=== PATIENT | female | born 1975 | race Hispanic/Latino ===

== ENCOUNTER → 2024-06-11 14:19 | Outpatient (CLI) | payer SELFPAY ==
[2024-06-11 19:37] LABS: Add Manual Diff / Slide Review NO; Basophils Absolute Auto 100 /uL (0-100); Basophils Percent Auto 0.7 % (0-2); Eosinophils Absolute Auto 300 /uL (0-450); Eosinophils Percent Auto 3.3 % (2-4); Hematocrit 32.9 % (36-46); Hemoglobin 10.4 g/dL (12.0-16.0); Lymphocytes Absolute Auto 2800 /uL (1100-4500); Lymphocytes Percent Auto 31.9 % (25-40); Mean Corpuscular HGB Conc 31.7 % (30-36); Mean Corpuscular Hemoglobin 19.1 PG (26-34); Mean Corpuscular Volume 60.3 fL (80-100); Monocytes Absolute Auto 400 /uL (0-900); Neutrophils Absolute Auto 5200 /uL (1500-7000); Neutrophils Percent Auto 59.1 % (50-75); Platelet Count 273 X10^3/uL (150-400); Red Blood Cell Count 5.45 X10^6/uL (4.0-5.2); Red Cell Distribution Width 16.2 % (11.6-14.8); White Blood Cell Count 8.8 X10^3/uL (4.5-11.0)
[2024-06-11 19:40] LABS: Alanine Aminotransferase 19 IU/L (<35); Albumin 4.1 g/dL (3.5-5.0); Albumin Globulin Ratio 1.8 (1.0-2.8); Alkaline Phosphatase 110 U/L (38-126); Aspartate Aminotransferase 24 IU/L (14-36); BUN Creatinine Ratio 45.7 (6-22); Bilirubin Total 0.7 mg/dL (0.2-1.3); Blood Urea Nitrogen 16 mg/dL (7-17); C-Reactive Protein Quant < 0.5 mg/dL (<1.0); Calcium 9.7 mg/dL (8.4-10.2); Carbon Dioxide 24 mmol/L (22-32); Chloride 96 mmol/L (98-107); Estimated Glomerular Filt Rate > 60 mL/min (>60); Globulin 2.3 g/dL (1.7-4.1); Glucose 388 mg/dL (70-100); HEMOLYSIS < 15 (0-50); Potassium 3.8 mmol/L (3.4-5.1); Sodium 131 mmol/L (137-145); Total Protein 6.4 g/dL (6.3-8.2)
[2024-06-11 19:43] LABS: Hemoglobin A1C% w Est Avg Glu 12.7 % (4.0-6.0)
[2024-06-11 19:54] LABS: Erythrocyte Sedimentation Rate 5 MM/HR (0-20); Microcytosis 1+
== END ==
PROVIDERS: PCP Family Medicine; Visit Provider Family Medicine
DX: E11.622 Type 2 diabetes mellitus with other skin ulcer (principal); L97.509 Non-pressure chronic ulcer of other part of unspecified foot with unspecified severity; L98.499 Non-pressure chronic ulcer of skin of other sites with unspecified severity
CPT/HCPCS: 80053; 83036; 85025; 85651; 86140; 87070; 87075; 87077; 87186; 87205

== ENCOUNTER → 2024-06-18 10:55 | Outpatient (CLI) | payer SELFPAY ==
--- NOTE | 2024-06-18 | OV.WND_ITS ---
PROGRESS NOTE DETAILS PATIENT NAME: CHARLEY COLES PATIENT NUMBER: [id number] CLINICIAN: POLLY MARQUEZ PATIENT DATE OF : 1975 PHYSICIAN / PROPAGATION WORKER: MONI FLOYD PATIENT SUBJECTIVE CHIEF COMPLAINT THIS INFORMATION WAS OBTAINED FROM THE PATIENT. WOUNDS ON BIG TOES ALLERGIES NO KNOWN DRUG ALLERGIES HPI THIS INFORMATION WAS OBTAINED FROM THE PATIENT. THE FOLLOWING HPI ELEMENTS WERE DOCUMENTED FOR THE PATIENT'S WOUND: LOCATION: [facility] DURATION: 03/20/24 CONTEXT: DFU THE PATIENT IS A 49-YEAR-OLD FEMALE WITH DIABETES WHO WAS REFERRED BY DR. CITLALI WEIR FOR EVALUATION AND TREATMENT OF ULCERS ON BOTH GREAT TOES THAT DEVELOPED AFTER WEARING SOME TIGHT SHOES. THE PATIENT REPORTS THAT THE ULCERS ARE PAINFUL HOWEVER SHE HAS NOT HAD ANY DRAINAGE. SHE DID RECENTLY HAVE SIGNS OF INFECTION AND WAS TREATED WITH A COURSE OF ORAL ANTIBIOTICS. THE PATIENT HAS NOT HAD ANY RECENT FEVER OR CHILLS. SHE REPORTS A GOOD APPETITE AND DENIES HAVING ANY OTHER RECENT CHANGES IN HER OVERALL HEALTH. SHE HAS NEVER HAD ANY DIABETIC ULCERS IN THE PAST. THE PATIENT DOES NOT SMOKE CIGARETTES. ABIS DONE IN CLINIC TODAY INDICATE BILATERAL PAD. THE PATIENT DOES NOT SPEAK VIETNAMESE AND INFORMATION WAS OBTAINED WITH THE USE OF A SEARCH ENGINE OPTIMIZATION STRATEGIST. LABS 06/12/24: X-RAYS OF BOTH FEET SHOWED MILD DIFFUSE SOFT TISSUE SWELLING, NO EVIDENCE FOR OSTEOMYELITIS. 06/11/24: HEMOGLOBIN A1C 12.7, WBC 8.8, HEMOGLOBIN 10.4, HCT 32.9, SODIUM 131, CREATININE 0.35, GFR GREATER THAN 60, LFTS NORMAL 06/11/24: CULTURES GREW STAPHYLOCOCCUS EPIDERMIDIS AND CITROBACTER FREUNDII FAMILY HISTORY UNABLE TO OBTAIN INFORMATION. SOCIAL HISTORY THIS INFORMATION WAS OBTAINED FROM THE PATIENT. NEVER SMOKER LIVES IN: PRIVATE HOME OCCUPATION: UNEMPLOYED [employer] CHARLEY COLES [id number] 1975 MEDICAL HISTORY THIS INFORMATION WAS OBTAINED FROM THE CHART, PATIENT. PATIENT HAS A MEDICAL HISTORY OF: DIABETES WITH SKIN ULCER DIABETIC ULCER OF TOE ASSOCIATED WITH DIABETES MELLITUS DUE TO UNDERLYING CONDITION DM2 MIXED HYPERLIPIDEMIA ADDITIONAL INFORMATION DOES PATIENT HAVE A HISTORY OF CANCER? YES? COMPLETE ALL QUESTIONS.: NO SURGICAL HISTORY THIS INFORMATION WAS OBTAINED FROM THE PATIENT. PATIENT HAS A SURGICAL HISTORY OF: HYSTERECTOMY - REVIEW OF SYSTEMS (ROS) THIS INFORMATION WAS OBTAINED FROM THE PATIENT. COMPLAINTS AND SYMPTOMS PATIENT COM PLAINS OF: CO-MORBID CONDITIONS: DIABETES PRIOR WOUND HISTORY: ERYTHEMA, PAIN PATIENT DENIES COM PLAINTS OR SY M PTOM S RELATED TO: CARDIOVASCULAR (CENTRAL): CHEST PAIN, DYSPNEA ON EXERTION CONSTITUTIONAL SYMPTOMS (GENERAL HEALTH): CHILLS, FEVER, LOSS OF APPETITE PRIOR WOUND HISTORY: BLEEDING, DRAINAGE, MALODOR RESPIRATORY: COUGH, SHORTNESS OF BREATH GENERAL NOTES UP TO DATE PER PT OBJECTIVE VITALS HEIGHT/LENGTH: 63 IN (160.02 CM), WEIGHT: 161 LBS (73.18 KGS), BMI: 28.5. PHYSICAL EXAM CONSTITUTIONAL: VITAL SIGNS REVIEWED AND NOTED. WELL DEVELOPED, WELL NOURISHED, AND IN NO ACUTE DISTRESS. ALERT AND ORIENTED X3. RESPIRATORY: EVEN RESPIRATIONS WITHOUT USE OF ACCESSORY MUSCLES. NO INTERCOASTAL RETRACTIONS NOTED. EVEN AND NON LABORED RESPIRATION. INTEGUMENTARY (HAIR, SKIN): NO ERYTHEMA. NO SWELLING OR TENDERNESS. SEE WOUND ASSESSMENT. SKIN WARM AND DRY. NO RASHES. NEUROLOGICAL: SENSATION: SYMMETRIC FUNCTION BY INFORMAL OBSERVATION. PSYCHIATRIC: ORIENTATION TO TIME, PLACE AND PERSON: NORMAL AFFECT WITH NORMAL THOUGHT PATTERN. CHARLEY COLES [id number] 1975 ADDITIONAL INFORMATION THE PATIENT'S POTENTIAL TO HEAL IS: FAIR. LOWER EXTREMITY ASSESSMENT VASCULAR ASSESSMENT LEFT EXTREMITY PULSES: DORSALIS PEDIS: DOPPLER RIGHT EXTREMITY PULSES: DORSALIS PEDIS: DOPPLER LEFT EXTREMITY COLORS, HAIR GROWTH, AND CONDITIONS: EXTREMITY COLOR: WNL HAIR GROWTH ON EXTREMITY: NO TEMPERATURE OF EXTREMITY: WARM CAPILARY REFILL: > 3 SECONDS ERYTHEMA: NO RIGHT EXTREMITY COLORS, HAIR GROWTH, AND CONDITIONS: EXTREMITY COLOR: WNL HAIR GROWTH ON EXTREMITY: NO TEMPERATURE OF EXTREMITY: WARM CAPILARY REFILL: > 3 SECONDS ERYTHEMA: NO WOUND ASSESSMENT(S) WOUND #1 LEFT HALLUX IS A CHRONIC VERA GRADE 4 DIABETIC ULCER ACQUIRED ON 03/20/2024 AND HAS RECEIVED A STATUS OF NOT HEALED. INITIAL WOUND ENCOUNTER MEASUREMENTS ARE 1.8CM LENGTH X 2.4CM WIDTH X 0.1 CM DEPTH, WITH AN AREA OF 4.32 SQ CM AND A VOLUME OF 0.432 CUBIC CM. ADIPOSE IS EXPOSED. NO TUNNELING HAS BEEN NOTED. NO SINUS TRACT HAS BEEN NOTED. NO UNDERMINING HAS BEEN NOTED. THERE WAS NO DRAINAGE NOTED. THE PATIENT REPORTS A WOUND PAIN OF LEVEL 0/10. THE WOUND MARGIN IS UNABLE TO ASSESS WOUND BED HAS NO, GRANULATION, NO SLOUGH, YES ESCHAR, NO EPITHELIALIZATION. THE PERIWOUND SKIN TEXTURE IS NORMAL. THE PERIWOUND SKIN MOISTURE IS NORMAL. THE PERIWOUND SKIN COLOR IS NORMAL. THE TEMPERATURE OF THE PERIWOUND SKIN IS WNL. LOCAL PULSE IS DOPPLER. ADDITIONAL INFORMATION OTHER DEVITALIZED TISSUE PRESENT: BIOFILM WOUND #2 RIGHT HALLUX IS A CHRONIC VERA GRADE 4 DIABETIC ULCER ACQUIRED ON 03/20/2024 AND HAS RECEIVED A STATUS OF NOT HEALED. INITIAL WOUND ENCOUNTER MEASUREMENTS ARE 2CM LENGTH X 2.8CM WIDTH X 0.1 CM DEPTH, WITH AN AREA OF 5.6 SQ CM AND A VOLUME OF 0.56 CUBIC CM. ADIPOSE IS EXPOSED. NO TUNNELING HAS BEEN NOTED. NO SINUS TRACT HAS BEEN NOTED. NO UNDERMINING HAS BEEN NOTED. THERE WAS NO DRAINAGE NOTED. THE PATIENT REPORTS A WOUND PAIN OF LEVEL 9/10. THE WOUND MARGIN IS UNABLE TO ASSESS WOUND BED HAS NO, GRANULATION, NO SLOUGH, YES ESCHAR, NO EPITHELIALIZATION. THE PERIWOUND SKIN TEXTURE IS NORMAL. THE PERIWOUND SKIN MOISTURE IS NORMAL. THE PERIWOUND SKIN COLOR IS NORMAL. THE TEMPERATURE OF THE PERIWOUND SKIN IS WNL. LOCAL PULSE IS DOPPLER. ADDITIONAL INFORMATION OTHER DEVITALIZED TISSUE PRESENT: BIOFILM ASSESSMENT ACTIVE PROBLEMS ICD-10 (ENCOUNTER DIAGNOSIS) E11.621 - TYPE 2 DIABETES MELLITUS WITH FOOT ULCER (ENCOUNTER DIAGNOSIS) L97.522 - NON-PRESSURE CHRONIC ULCER OF OTHER PART OF LEFT FOOT WITH FAT LAYER EXPOSED CHARLEY COLES [id number] 1975 (ENCOUNTER DIAGNOSIS) L97.512 - NON-PRESSURE CHRONIC ULCER OF OTHER PART OF RIGHT FOOT WITH FAT LAYER EXPOSED GENERAL NOTES DRY NECROTIC ESCHARS ON BILATERAL GREAT TOES, NO INFECTION THE FOLLOWING FACTORS HAVE BEEN IDENTIFIED THAT MAY AFFECT WOUND HEALING: DEVITALIZED TISSUE BIOFILM DIABETES PRESSURE MOISTURE IMBALANCE GOALS: REMOVED DEVITALIZED TISSUE REMOVE AND PREVENT BIOFILM REDUCE PRESSURE PREVENT INFECTION WOUND CLOSURE PREVENT RECURRENCE PLAN: PAINT BOTH ESCHARS WITH BETADINE DAILY AND ALLOW TO AIR DRY, USE POSTOP SURGICAL SHOES FOR PRESSURE OFFLOADING, ORDER ARTERIAL DOPPLER, FOLLOW UP IN 2 WEEKS FOR A RECHECK. PLAN WOUND ORDERS: WOUND #1 LEFT HALLUX TOPICAL TREATMENTS OTHER ORDER: - PAINT WITH BETADINE DAILY DRESSING ORDERS APPLY DRESSING(S) AND SECURE WITH: - LOOSE GAUZE AND TAPE DRESSING CHANGE FREQUENCY CHANGE DRESSING DAILY. WOUND #2 RIGHT HALLUX TOPICAL TREATMENTS OTHER ORDER: - PAINT WITH BETADINE DAILY DRESSING ORDERS APPLY DRESSING(S) AND SECURE WITH: - LOOSE GAUZE AND TAPE DRESSING CHANGE FREQUENCY CHANGE DRESSING DAILY. ADDITIONAL ORDERS: HAND HYGIENE HAND HYGIENE - WASH HANDS BEFORE AND AFTER WOUND CARE. CALL THE WOUND CENTER AT [phone] IF YOU HAVE SIGNS OR SYMPTOMS OF INFECTION, FEVER CHILLS OR SHAKES, INCREASED DRAINAGE, INCREASED ODOR OR UNUSUAL REDNESS. AFTER WOUND CENTER HOURS PLEASE NOTIFY YOUR PCP OR GO TO THE EMERGENCY ROOM. OFF-LOADING / PRESSURE RELIEF USE/WEAR WHEN WALKING: - SANDALS. DO NOT WEAR ANY TIGHT FITTING SHOES DIETARY TAKE VITAMIN C 1000MG BY MOUTH DAILY. TAKE ZINC 25MG BY MOUTH DAILY. INCREASE THE PROTEIN IN YOUR DIET. FOLLOW-UP APPOINTMENTS RETURN APPOINTMENT 1 WEEK SCRIBING ATTESTATION I ATTEST, THE NURSE, THAT I SCRIBED THESE ORDERS FOR THE WOUND CARE PROVIDER. PROVIDER REVIEW AND ATTESTATION: CHARLEY COLES [id number] 1975 REVIEWED AND EVALUATED LABS. REVIEWED HOSPITAL RECORDS. DISCUSSED THE PLAN OF CARE @ BEDSIDE WITH - THE PATIENT AND SIGN I AGREE AND ATTEST TO THE ABOVE INFORMATION PROVIDED FROM OTHER LICENSED PROFESSIONALS. ANCILLARY SERVICES: CARDIOVASCULAR: ARTERIAL ULTRASOUND - PLEASE CALL AND SCHEDULE [phone] PLAN OF CARE: 01. ENSURE/ESTABLISH OPTIMAL BLOOD FLOW : - COMPLETE LOWER EXTREMITY ASSESSMENT STATUS: INITIATED DATE: 06/18/2024 - PERFORM NON-INVASIVE VASCULAR TESTING (I.E. RONALD) AND DOCUMENT FINDINGS. CONSIDER REPEATING WHEN WOUND HEALING <40% AFTER 30 DAYS OF WOUND CARE. STATUS: COMPLETED DATE: 06/18/2024 - ORDER VASCULAR CONSULT FOR EVALUATION/TREATMENT AND/OR NON-INVASIVE VASCULAR TESTING. STATUS: INITIATED DATE: 06/18/2024 02. ASSESS FOR/TREAT INFECTION : - EVALUATE FOR SIGNS AND SYMPTOMS OF INFECTION AND DOCUMENT FINDINGS. STATUS: INITIATED DATE: 06/18/2024 03. DEBRIDE WEEKLY OR MORE OFTEN PRN : - EVALUATE PATIENT IN CENTER WEEKLY TO ASSESS WOUND BED AND MARGINS FOR NEED FOR DEBRIDEMENT. STATUS: INITIATED DATE: 06/18/2024 04. OPTIMIZE GLUCOSE CONTROL AND NUTRITION : - ORDER/REVIEW PERTINENT LABS TO EVALUATE RENAL FUNCTION, GLUCOSE CONTROL, AND NUTRITIONAL STATUS. STATUS: INITIATED DATE: 06/18/2024 - COMPLETE A NUTRITION RISK ASSESSMENT. STATUS: COMPLETED DATE: 06/18/2024 05. OFFLOADING PLAN : - EVALUATE PLAN FOR OFFLOADING STATUS: INITIATED DATE: 06/18/2024 06. OPTIMIZE HOST FACTORS: - ASSESS AND REVIEW PATIENT HISTORY FOR WOUND ETIOLOGY, CO-MORBID CONDITIONS, MEDICATION REGIME, AND SMOKING HISTORY. STATUS: INITIATED DATE: 06/18/2024 ELECTRONIC SIGNATURE(S) SIGNED BY: DATE: MONI FLOYD MD 06/18/2024 15:58:23 (PT) ENTERED BY: MONI FLOYD MD ON 06/18/2024 13:00:43 (PT) CHARLEY COLES [id number] 1975
== END ==
PROVIDERS: PCP Family Medicine; Referring Provider Family Medicine; Visit Provider Surgery
DX: E11.621 Type 2 diabetes mellitus with foot ulcer (principal); L97.522 Non-pressure chronic ulcer of other part of left foot with fat layer exposed; L97.512 Non-pressure chronic ulcer of other part of right foot with fat layer exposed
CPT/HCPCS: 99203; 99215

== ENCOUNTER → 2024-06-25 11:44 | Outpatient (CLI) | payer SELFPAY | LOC: WC 11:45 | PROVIDERS: PCP Family Medicine; Referring Provider Family Medicine; Visit Provider Surgery | DX: E11.621 Type 2 diabetes mellitus with foot ulcer (principal); L97.522 Non-pressure chronic ulcer of other part of left foot with fat layer exposed; L97.512 Non-pressure chronic ulcer of other part of right foot with fat layer exposed; R23.4 Changes in skin texture | CPT/HCPCS: 87070; 87075; 87077; 87186; 87205; 99213 ==